=== PATIENT | female | born 1990 | race Caucasian/White ===

== ENCOUNTER → 2017-02-04 | Day surgery (SDC) | payer OTHER ==
[~2017-02-04] VITALS: Ht 157.5 cm; Wt 51.0 kg
[~2017-02-04] MED LIST: 0.9% Sodium Chloride 1,000 ML IV PRN; Sodium Chloride LOK Flush 10 mL Syringe IV PRN; fentaNYL-PF 50 mCg/mL 2 mL Inj IVPUSH PRN
[2017-02-04 09:48] VITALS: BP 123/83; PULSE 72; RESP 16; O2SAT 99
[2017-02-04 10:34] VITALS: BP 106/67; PULSE 88; O2SAT 100
[2017-02-04 10:48] VITALS: BP 112/74; PULSE 88; RESP 16; O2SAT 100
[2017-02-04 10:50] VITALS: BP 114/82; PULSE 86; RESP 16; O2SAT 97
--- NOTE | 2017-02-04 11:05 | ENDO ---
[address] [address] ENDOSCOPY PROCEDURE PATIENT: PAXTON TAYLOR : 1990 MR#: [id number] ADMIT: 02/04/2017 JOB ID: [id number] DATE: 02/04/2017 PROCEDURE: Colonoscopy. INDICATIONS: A 26-year-old female with about a month of intermittent red blood per rectum on the stool. No convincing tenesmus per se. No chronic diarrhea. There is a family history of colitis. Colonoscopy was requested. EQUIPMENT: [facility] SEDATION: 1. Versed 7 mg. 2. Fentanyl 150 mcg. COMPLICATIONS: None identified. BOWEL PREP: Excellent. PROCEDURE INFO: After the risks and benefits explained, written and verbal informed consent was obtained. The patient was brought into the endoscopy suite and placed in left lateral decubitus position. Sedation was achieved as above. A digital rectal examination was accomplished. No significant pathology appreciated. Minimal internal hemorrhoidal cushions palpated. The scope was introduced into the rectum and advanced to the cecum as identified by the appendiceal orifice and ileocecal valve. The terminal ileum was briefly interrogated. The scope then slowly withdrawn to carefully examine the mucosa for any defects or lesions. Multiple direct views were made through the dentate line for exclusion of pathology. The colon was decompressed. The scope removed from the patient who tolerated the procedure well. FINDINGS: No proctitis. No colitis. The TI appeared normal. I did not see any significant polyps or mass lesions throughout. No vascular pathology. No sign of any new or old blood. There was mild internal hemorrhoidal cushions, but no fissure identified. ENDOSCOPIC DIAGNOSES: 1. Minimal internal hemorrhoids. 2. Otherwise visually unremarkable colonoscopy. RECOMMENDATIONS: 1. The patient is encouraged to regulate stool with either soaked Minesh seeds or dilute ground flaxseed fiber. 2. Intermittent warm Epsom salt baths in the evening for the next week. 3. Follow up in primary care. At this time there is no suggestion of inflammatory bowel disease.
== END | disposition home or self-care (01) ==
LOC: END 00:35
PROVIDERS: ATTEND Internal Medicine Gastroenterology
DX: K62.5 Hemorrhage of anus and rectum (principal); K64.8 Other hemorrhoids; Z83.79 Family history of other diseases of the digestive system; F41.9 Anxiety disorder, unspecified; F32.9 Major depressive disorder, single episode, unspecified
CPT/HCPCS: 45378; G0500; J2250; J3010; J7030